=== PATIENT | male | born 1985 | race Caucasian/White ===

== ENCOUNTER 2016-03-02 09:25 | Emergency (ER) | payer OTHER ==
--- NOTE | 2016-03-02 10:19 | CT ---
CT CERVICAL SPINE: Technique: Multiple axial tomograms were obtained through the cervical spine with multiplanar recon structions. History: Neck pain from injury three days ago. FINDINGS: The cervical vertebrae maintain normal height and alignment. Disc spaces are preserved. No evidenc e of fracture identified. IMPRESSION: Unremarkable CT cervical spine. POS: GREGORIO
--- NOTE | 2016-03-02 10:37 | ERRECORD ---
[facility] HPI NECK PAIN (09:42 MPUR) CHIEF COMPLAINT: Patient presents for evaluation of neck injury. HISTORIAN: History provided by patient, Was wrestling with his stepson Tuesday evening when he felt the sudden onset of pain in his neck region with numbness and tingling down his left arm. Pain, now associated with stiffness has continued. Presents now for evaluation. MECHANISM OF INJURY: Mechanism of injury: Sport or activity. LOCATION: Symptoms are localized, back of left arm to elbow. SEVERITY: Maximum severity of symptoms moderate, Currently symptoms are moderate. TIME COURSE: Sudden onset of symptoms, pain significant enough tot stop the wrestling. EXACERBATED BY: Patient's condition exacerbated by movement of head. RELIEVED BY: Patient's condition relieved by nothing. ROS (09:58 MPUR) CONSTITUTIONAL: Historian denies fever. EYES: Historian denies eye pain. ENT: Historian denies rhinorrhea. CARDIOVASCULAR: Historian denies chest pain. RESPIRATORY: Historian denies cough. GI: Historian denies diarrhea, Historian denies vomiting. GENITOURINARY MALE: Historian denies dysuria. MUSCULOSKELETAL: Historian denies arthralgia except in his neck. SKIN: Historian denies rash. NEUROLOGIC: Historian denies seizures. ENDOCRINE: Historian denies skin changes. HEMO/LYMPHATIC: Historian denies easy bruising. PAST MEDICAL HISTORY (09:33 JPAR) MEDICAL HISTORY: Flu vaccine not up to date, Tetanus immunization up to date, Pneumococcal vaccine not up to date. MALE SURGICAL HISTORY: Patient has no surgical history. PSYCHIATRIC HISTORY: No previous psychiatric history. SOCIAL HISTORY: Patient drinks socially, every week, Patient denies drug use, Patient currently uses tobacco, chews tobacco, daily, Patient has smoked for 15 years, Patient smokes 1/2 packs per day. KNOWN ALLERGIES Penicillins: Reaction: Rash CURRENT MEDICATIONS (09:30 JPAR) None &a-1R&a+25V*p+0X*[id number]*c202B*c15G*c2P*p-0X&a-25V&a+1R Name: Stephane Clinton : 1985 M30 MedRec: [id number] AcctNum: [id number] Prepared: Alex Mar 02, 2016 18:40 by Interface Page 1 of 3 pMD [facility] EMERGENCY RECORD VITAL SIGNS (09:28 JPAR) VITAL SIGNS: BP: 188/88, Pulse: 115, Resp: 18, Temp: 98.2 (Oral), Pain: 9, O2 sat: 98, Time: 03/02/2016 09:28. PHYSICAL EXAM (09:58 MPUR) CONSTITUTIONAL: Vital signs reviewed. HEAD: Head exam included findings of head atraumatic. EYES: Eye exam included findings of eyelids normal to inspection, Sclera normal. ENT: Nose exam normal, no nasal deformity, mucous membranes moist. NECK: Trachea midline, no contusions. RESPIRATORY CHEST: Respiratory exam included findings of no respiratory distress, Breath sounds clear, no increased work of breathing, rate nl. CARDIOVASCULAR: Cardiovascular exam included findings of heart rate regular rate and rhythm, Heart sounds normal. ABDOMEN MALE: Abdominal exam included findings of abdomen nontender, no mass, no percussion. LOWER EXTREMITY: no cyanosis, no edema. NEURO: Speech normal, Memory normal, alert, moving all extremities well. SKIN: Skin exam included findings of skin warm, dry, no rash. PSYCHIATRIC: Normal affect, Recent memory normal. RADIOLOGYINTERPRETATION (10:06 MPUR) NECK: Cervical spine films negative, no fracture, no subluxation, no soft tissue swelling, no foreign body. DOCTOR NOTES (09:58 MPUR) TEXT: I have reviewed and agree with nurse's past medical, family, and social history as documented on chart. Pt's vital signs have been reviewed. PROBLEM LIST No recorded problems DIAGNOSIS (10:02 MPUR) FINAL: PRIMARY: cervical strain. PRESCRIPTION (10:04 MPUR) cyclobenzaprine: TABLET : 10 mg : ORAL : Quantity: 1 Unit: tab(s) Route: ORAL Schedule: every 8 hours PRN Dispense: 21 May substitute. Refills: No Refills . NOTES: muscle spasm No Refills. predniSONE oral: TABLET : 20 mg : ORAL : Quantity: 2 &a-1R&a+25V*p+0X*a7799A*c202B*c15G*c2P*p-0X&a-25V&a+1R Name: Stephane Clinton : 1985 M30 MedRec: [id number] AcctNum: [id number] Prepared: TueMar 02, 2016 18:40 by Interface Page 2 of 3 pMD [facility] EMERGENCY RECORD Unit: tab(s) Route: ORAL Schedule: once a day (in the morning) Dispense: 12 Unit: tab(s) May substitute. Refills: No Refills . NOTES: No Refills. DISPOSITION PATIENT: Disposition Type: Discharge, Disposition: *Discharge Home. (10:02 SPIKE) Patient left the department. (10:27 HUMA) Hoffman: HUMA=INDIRA Washington, Sharif MPUR=MD Kelle, Dao &a-1R&a+25V*p+0X*[id number]*c202B*c15G*c2P*p-0X&a-25V&a+1R Name: Stephane Clinton : 1985 10 MedRec: [id number] AcctNum: [id number] Prepared: TueMar 02, 2016 18:40 by Interface Page 3 of 3 pMD MTDD
--- NOTE | 2016-03-02 10:42 | PICIS ---
[facility] EMERGENCY RECORD TRIAGE (TueMar 02, 2016 09:29 JPAR) TRIAGE NOTES: Neck and left arm pain after wrestling Tuesday night with son. (TueMar 02, 2016 09:29 JPAR) PATIENT: NAME: Stephane Clinton, AGE: 30, GENDER: male, : Tue1985, TIME OF GREET: TueMar 02, 2016 09:25, PREFERRED LANGUAGE: Frisian, ETHNICITY: Not or , ECODE BILLING MAP: [facility], SSN: [id number], Zip Code: [address], KG WEIGHT: 74.84, PHONE: , , , PERSON ID: [id number], PCP: MD Butts Jacques. (TueMar 02, 2016 09:29 JPAR) COMPLAINT: NECK INJURY. (TueMar 02, 2016 09:29 JPAR) ADMISSION: URGENCY: 4 Non Urgent, ADMISSION SOURCE: Home, TRANSPORT: CAR, BED: TRIAGE. (TueMar 02, 2016 09:29 JPAR) ASSESSMENT: Assessment: neck pain, pinched nerve, pain comes and goes left arm since injury, Symptoms began 2-3 days, Symptoms began 3 days ago. (09:33 JPAR) PAIN: Patient complains of pain described as, aching, on a scale 0-10 patient rates pain as 9. (09:33 JPAR) SIRS SCORING: Heart Rate 55-109 (0), Temp range 96.8-101.1 (0), respiratory rate 12-24 (0), Mental Status altered: no (0), Infection or Suspected Infection: No. (09:33 JPAR) TRIAGE SCREENING: Patient denies suicidal ideation, Patient denies presence of domestic violence. (09:33 JPAR) PROVIDERS: TRIAGE NURSE: Sharif Washington RN. (TueMar 02, 2016 09:29 JPAR) VITAL SIGNS: BP 188/88, Pulse 115, Resp 18, Temp 98.2, (Oral), Pain 9, O2 Sat 98, Time 03/02/2016 09:28. (09:28 JPAR) PREVIOUS VISIT ALLERGIES: Penicillins. (TueMar 02, 2016 09:29 JPAR) Penicillins. (09:33 JPAR) KNOWN ALLERGIES Penicillins: Reaction: Rash CURRENT MEDICATIONS (09:30 JPAR) None VITAL SIGNS (09:28 JPAR) VITAL SIGNS: BP: 188/88, Pulse: 115, Resp: 18, Temp: 98.2 (Oral), Pain: 9, O2 sat: 98, Time: 03/02/2016 09:28. NURSING PROCEDURE: DISCHARGE NOTE (10:11 JPAR) DISCHARGE: Patient discharged to home, ambulating without assistance, driving self, accompanied by other family member, Summary of Care printed/ provided, Patient requested and was provided an electronic copy of Discharge Instructions, Transition record given to patient, Discharge instructions given to patient, Simple or moderate discharge teaching performed, Prescriptions given and instructions on side effects given, Name of prescription(s) given: Prednisone, &a-1R&a+25V*p+0X*o0975D*c202B*c15G*c2P*p-0X&a-25V&a+1R Name: Stephane Clinton : 1985 M30 MedRec: [id number] AcctNum: [id number] Prepared: TueMar 02, 2016 18:46 by Interface Page 1 of 5 pMD [facility] EMERGENCY RECORD Flexeril, Above person(s) verbalized understanding of discharge instructions and follow-up care, Patient treated and evaluated by physician. BELONGINGS: Belongings and valuables with patient upon arrival to the Emergency Department include:, Belongings remain with patient, Valuables remain with patient. SAFETY: Side rails up, Cart/Stretcher in lowest position, Family at bedside, Call light within reach, Hospital ID band on. NURSING PROCEDURE: SPINE PRECAUTIONS PATIENT IDENTIFIER: Patient actively involved in identification process, Patient's identity verified by patient stating name, Patient's identity verified by patient stating date, Patient's identity verified by hospital ID bracelet. (09:31 JPAR) SPINE PRECAUTIONS: Spinal precautions indicated by unknown injury, Spinal precautions indicated by R sided neck pain, when palpated hurts on opposite side, Cervical collar applied. (09:31 JPAR) REMOVAL: Cervical collar removed, Notes: Pt removed himself, was informed to take it home because he may want to use it to rest to prevent pain. (10:00 JPAR) FOLLOW-UP: After procedure, airway patent, After procedure, no numbness to extremities, After procedure, no tingling to extremities. (09:31 JPAR) NOTES: Emotional support needed and given. (09:31 JPAR) SAFETY: Side rails up, Cart/Stretcher in lowest position, Family at bedside, Call light within reach, Hospital ID band on. (09:31 JPAR) NURSING PROCEDURE: TRANSPORT TO TESTS (11:58 CCRI) TRANSPORT TO TESTS: Patient transported to CT scan, via cart, Accompanied by x-ray chief technician x ray, Patient arrived in location at 11:46A, Patient departed location at 11:51A. ORDER DETAILS Order Name: CT Cervical Spine WO Con, Status: Active, Time: 09:41 03/02/2016, User: SPIKE, - Ordered for: MD Nina Marcus, - Entered by: MD Nina Marcus - TueMar 02, 2016 09:41, - Quantity: 1. HPI NECK PAIN (09:42 MPUR) CHIEF COMPLAINT: Patient presents for evaluation of neck injury. HISTORIAN: History provided by patient, Was wrestling with his stepson Tuesday evening when he felt the sudden onset of pain in his neck region with numbness and tingling down his left arm. Pain, now associated with stiffness has continued. Presents now for evaluation. MECHANISM OF INJURY: Mechanism of injury: Sport or activity. LOCATION: &a-1R&a+25V*p+0X*n8098T*c202B*c15G*c2P*p-0X&a-25V&a+1R Name: Stephane Clinton Celso : 1985 M30 MedRec: [id number] AcctNum: [id number] Prepared: TueMar 02, 2016 18:46 by Interface Page 2 of 5 pMD [facility] EMERGENCY RECORD Symptoms are localized, back of left arm to elbow. SEVERITY: Maximum severity of symptoms moderate, Currently symptoms are moderate. TIME COURSE: Sudden onset of symptoms, pain significant enough tot stop the wrestling. EXACERBATED BY: Patient's condition exacerbated by movement of head. RELIEVED BY: Patient's condition relieved by nothing. ROS (09:58 MPUR) CONSTITUTIONAL: Historian denies fever. EYES: Historian denies eye pain. ENT: Historian denies rhinorrhea. CARDIOVASCULAR: Historian denies chest pain. RESPIRATORY: Historian denies cough. GI: Historian denies diarrhea, Historian denies vomiting. GENITOURINARY MALE: Historian denies dysuria. MUSCULOSKELETAL: Historian denies arthralgia except in his neck. SKIN: Historian denies rash. NEUROLOGIC: Historian denies seizures. ENDOCRINE: Historian denies skin changes. HEMO/LYMPHATIC: Historian denies easy bruising. PAST MEDICAL HISTORY (09:33 JPAR) MEDICAL HISTORY: Flu vaccine not up to date, Tetanus immunization up to date, Pneumococcal vaccine not up to date. MALE SURGICAL HISTORY: Patient has no surgical history. PSYCHIATRIC HISTORY: No previous psychiatric history. SOCIAL HISTORY: Patient drinks socially, every week, Patient denies drug use, Patient currently uses tobacco, chews tobacco, daily, Patient has smoked for 15 years, Patient smokes 1/2 packs per day. PHYSICAL EXAM (09:58 MPUR) CONSTITUTIONAL: Vital signs reviewed. HEAD: Head exam included findings of head atraumatic. EYES: Eye exam included findings of eyelids normal to inspection, Sclera normal. ENT: Nose exam normal, no nasal deformity, mucous membranes moist. NECK: Trachea midline, no contusions. RESPIRATORY CHEST: Respiratory exam included findings of no respiratory distress, Breath sounds clear, no increased work of breathing, rate nl. CARDIOVASCULAR: Cardiovascular exam included findings of heart rate regular rate and rhythm, Heart sounds normal. &a-1R&a+25V*p+0X*p0531Q*c202B*c15G*c2P*p-0X&a-25V&a+1R Name: Stephane Clinton : 1985 M30 MedRec: [id number] AcctNum: [id number] Prepared: TueMar 02, 2016 18:46 by Interface Page 3 of 5 pMD [facility] EMERGENCY RECORD ABDOMEN MALE: Abdominal exam included findings of abdomen nontender, no mass, no percussion. LOWER EXTREMITY: no cyanosis, no edema. NEURO: Speech normal, Memory normal, alert, moving all extremities well. SKIN: Skin exam included findings of skin warm, dry, no rash. PSYCHIATRIC: Normal affect, Recent memory normal. EVENTS TRANSFER: Triage to Emergency Triage. (TueMar 02, 2016 09:29 JPAR) Emergency Triage to Emergency Room -03. (09:30 EPIE) Removed from Emergency Emergency Room -03. (10:27 JPAR) RADIOLOGYINTERPRETATION (10:06 MPUR) NECK: Cervical spine films negative, no fracture, no subluxation, no soft tissue swelling, no foreign body. DOCTOR NOTES (09:58 MPUR) TEXT: I have reviewed and agree with nurse's past medical, family, and social history as documented on chart. Pt's vital signs have been reviewed. PROBLEM LIST No recorded problems DIAGNOSIS (10:02 MPUR) FINAL: PRIMARY: cervical strain. DISPOSITION PATIENT: Disposition Type: Discharge, Disposition: *Discharge Home. (10:02 MPUR) Patient left the department. (10:27 JPAR) INSTRUCTION (10:05 MPUR) DISCHARGE: NECK SPRAIN/STRAIN. FOLLOWUP: MD Butts Jacques, [address] [address], . SPECIAL: Heat Follow-up with your primary physician as needed Tylenol or Advil for Pain. PRESCRIPTION (10:04 MPUR) cyclobenzaprine: TABLET : 10 mg : ORAL : Quantity: 1 Unit: tab(s) Route: ORAL Schedule: every 8 hours PRN Dispense: 21 May substitute. Refills: No Refills . NOTES: muscle spasm No Refills. &a-1R&a+25V*p+0X*x5459U*c202B*c15G*c2P*p-0X&a-25V&a+1R Name: Stephane Clinton : 1985 M30 MedRec: [id number] AcctNum: [id number] Prepared: TueMar 02, 2016 18:46 by Interface Page 4 of 5 pMD [facility] EMERGENCY RECORD predniSONE oral: TABLET : 20 mg : ORAL : Quantity: 2 Unit: tab(s) Route: ORAL Schedule: once a day (in the morning) Dispense: 12 Unit: tab(s) May substitute. Refills: No Refills . NOTES: No Refills. IMAGING GREEN SHEET: Image captured from scanner. (09:51 EPIE) *SUPPLY CHARGE SHEET: Image captured from scanner. (10:15 JPAR) *DISCHARGE INSTRUCTIONS RECEIPT: Image captured from scanner. (10:15 JPAR) ADMIN (18:35 MPUR) DIGITAL SIGNATURE: MD Nina Marcus. Hoffman: CCRI=HUSSAIN Roy Clemente EPIE=INDIRA Finney, Mirela FINN=INDIRA Washington Jason MPUR=MD Nina Marcus &a-1R&a+25V*p+0X*p4656H*c202B*c15G*c2P*p-0X&a-25V&a+1R Name: Oz Stephane C : 1985 M30 MedRec: [id number] AcctNum: [id number] Prepared: Alex Mar 02, 2016 18:46 by Interface Page 5 of 5 pMD MTDD
== END 2016-03-02 10:11 | disposition home or self-care (01) ==
LOC: NAV ERS 09:25
DX: S16.1XXA Strain of muscle, fascia and tendon at neck level, initial encounter (principal); F17.220 Nicotine dependence, chewing tobacco, uncomplicated; X58.XXXA Exposure to other specified factors, initial encounter
CPT/HCPCS: 72125

== ENCOUNTER 2017-03-11 06:47 | Emergency (ER) | payer OTHER ==
--- NOTE | 2017-03-11 07:32 | RAD ---
THREE VIEWS LEFT FOOT: COMPARISON: None. HISTORY: Left foot pain after injuring it 6 days ago with a fall. FINDINGS: Three views left foot show no evidence of acute fracture or dislocation. No soft tissue swelling is seen. No degenerative changes are seen. IMPRESSION: No evidence of acute osseous abnormality. POS: JULIA
--- NOTE | 2017-03-14 07:27 | RAD ---
THREE VIEWS LEFT FOOT: COMPARISON: None. HISTORY: Left foot pain after injuring it 6 days ago and falling on the foot. FINDINGS: Three views left foot show a minimally displaced fracture of the 4th metatarsal head/neck. This is o nly seen on the oblique view. No focal soft tissue swelling is seen. IMPRESSION: Fourth metatarsal neck fracture. POS: [facility]
== END 2017-03-11 07:52 | disposition home or self-care (01) ==
LOC: NAV ERS 06:47
DX: S92.342A Displaced fracture of fourth metatarsal bone, left foot, initial encounter for closed fracture (principal); F17.220 Nicotine dependence, chewing tobacco, uncomplicated; W01.0XXA Fall on same level from slipping, tripping and stumbling without subsequent striking against object, initial encounter; Y93.01 Activity, walking, marching and hiking; Y92.009 Unspecified place in unspecified non-institutional (private) residence as the place of occurrence of the external cause